=== PATIENT | female | born 1970 | race African-American/Black ===

== ENCOUNTER 2016-07-20 08:07 | Emergency (ER) | payer OTHER ==
[2016-07-20 10:54] LABS: ASCORBIC ACID (UR NOT ORDER) 40 (NEG); BILIRUBIN, URINE NEGATIVE (NEG); ER URINALYSIS TAT 0 Hrs 08 Mins; KETONE, URINE NEGATIVE (NEG); LEUKOCYTE ESTERASE(NOT OR NEG (NEG); NITRITE (URINE) NEG (NEG); WBC (NOT ORDERED) (RFLEX) 1 (0-5)
== END 2016-07-20 16:08 | disposition home or self-care (01) ==
LOC: ER 08:07
PROVIDERS: Physician Assistant
DX: J06.9 Acute upper respiratory infection, unspecified (principal)
CPT/HCPCS: 71020; 81001; 84703; 93005; 99284; A9270-GY